=== PATIENT | female | born 1955 | race African-American/Black ===

== ENCOUNTER 2016-11-26 23:38 | Observation (INO) | payer MEDICAID, OTHER ==
[~2016-11-26] VITALS: Ht 153.7 cm; Wt 82.6 kg
--- NOTE | ~2016-11-26 | HEMODYNAMI ---
PATIENT:SANJAY CHENEY MEDICAL RECORD: [id number] : 51 [id number] ADMISSION DATE: 11/27/16 Generatedon:11/27/201616:07 Patient name: SANJAY CHENEY Patient #: [id number] SSN: : 1955 Date of study: 11/27/2016 Page: Of Hemodynamic Procedure Report Patient Data Patient Demographics Procedure consent was obtained First Name: SANJAY Gender: Female Last Name: NONI : 1955 Patient #: [id number] Age: 61 year(s) Race: Black Additional ID: [id number] Contact details Address: [address] [place] [address] State: [place] City: [facility] [place] Zip code: [address] Past Medical History Allergies Allergen Reaction Date Comments Reported Tetracycline 11/27/2016 Admission Admission Data Admission Date: 11/27/2016 Admission Time: 0:35 Admit Source: Emergency Insurance Payor: Private department health insurance, [facility] Room #: D.2202 [facility] Height (in.): 60.5 BSA: 1.8 (m2) Height (cm.): 153.67 BMI: 34.96 (kg/m2) Weight (lbs.): 182 Weight (kg.): 82.55 Lab Results Lab Result Date: 11/27/2016 Lab Result Time: 0:00 Biochemistry Name Units Result Min Max Creatinine mg/dl 1 --(--*-)-- 0.6 1.3 CBC Name Units Result Min Max Hemoglobin g/dl 9.9 *-(----)-- 13.5 17.5 Procedure Procedure Types Cath Procedure Diagnostic Procedure C [facility] w/Coronaries Procedure Description Procedure Date Procedure Date: 11/27/2016 Procedure Start Time: 15:54 Procedure End Time: 16:06 Procedure Staff Name Function Humberto Lara MD Performing Physician Lorna Graham RT Scrub Ras Lopez RN Nurse Yonis Lopez RN Tanbark Laborer Kota Crespo RT Monitor Procedure Data Cath Procedure Fluoroscopy Diagnostic fluoroscopy Total fluoroscopy Time: 0.9 time: 0.9 min min Diagnostic fluoroscopy Total fluoroscopy dose: dose: 104.4 mGy 104.4 mGy Contrast Material Contrast Material Type Amount (ml) Isovue 300 55 Entry Location Entry Primary Successful Side Size Upsize Upsize Entry Closure Succes sful Closure Location (Fr) 1 (Fr) 2 (Fr) Remarks Device Remarks Femoral Right 5 Fr Vascade artery Closure System Diagnostic catheters Device Type Used For End Catheter Placement Cordis 5Fr Pigtail LV Angiography Catheter (MP) Cordis 5Fr JL 4.0 Left Coronary Catheter (MP) Angiography Cordis 5Fr 3DRC Catheter Right Coronary (MP) Angiography Procedure Complications No complications Procedure Medications Medication Administration Route Dosage Oxygen NC 2 l/min Lidocaine 2% added to field 20 Heparin Flush Bag added to field 2 bags (1000units/500ml NS) 0.9% NaCl I.V. 100 ml/hr Versed I.V. 1 mg Fentanyl I.V. 50 mcg Versed I.V. 1 mg Fentanyl I.V. 50 mcg Hemodynamics Rest BSA: 1.8 (m2) HGB: 9.9 (g/dl) O2 Consumption: Estimated: 173.12 (ml/min) O2 Cons umption indexed: Estimated:96.18 (ml/min/m) Heart Rate: 76 (bpm) Snapshots Pre Cath Intra NCS Post Cath Vital Signs Time Heart Resp SPO2 NIBP (mmHg) Rhythm Pain Sedation Rate (ipm) (%) Status Level (bpm) 15:46:42 77 17 100 149/92(133) NSR 0 (11) 10(A) , No pain 15:50:50 81 15 98 124/87(105) NSR 0 (11) 10(A) , No pain 15:54:49 87 23 100 134/85(115) NSR 0 (11) 9(A) , No pain 15:58:49 95 16 96 122/105(118) NSR 0 (11) 9(A) , No pain 16:03:40 88 18 99 Out of range NSR 0 (11) 10(A) , No pain 16:06:13 89 6 98 137/108(121) NSR 0 (11) 10(A) , No pain Medications Time Medication Route Dose Verified Delivered Reason Notes Effe ctiveness by by 15:41:13 Oxygen NC 2 Humberto Buffie used for l/min Marco Lopez RN procedure 15:41:19 Lidocaine 2% added 20ml Humberto Humberto for local to vial Marco Lara MD anesthetic field 15:41:24 Heparin Flush added 2 Humberto Humberto used for Bag to bags Marco Lara MD procedure (1000units/500ml field NS) 15:41:35 0.9% NaCl I.V. 100 Humbertobruce Mcginnis Per ml/hr Marco Lopez RN physician 15:51:50 Versed I.V. 1 mg Humberto Parisiie for Marco Lopez RN sedation 15:51:55 Fentanyl I.V. 50 Humberto Buffie for mcg Marco Lopez RN sedation 15:56:29 Versed I.V. 1 mg Humbertobruce Parisiie for Marco Lopez RN sedation 15:56:33 Fentanyl I.V. 50 Humberto Parisiie for mcg Marco Lopez RN sedation Procedure Log Time Note 15:22:32 Yonis Lopez RN sent for patient. Start room use. 15:22:33 Time tracking: Regular hours 15:22:36 Plan of Care:Hemodynamics will remain stable., Cardiac rhythm will remain stable., Comfort level will be maintained., Respiratory function will remain adequate., Patient/ family verbilizes understanding of procedure., Procedure tolerated without complication., Recovers from procedure without complications.. 15:28:35 Lab Result : Hemoglobin 9.9 g/dl 15:28:35 Lab Result : Creatinine 1 mg/dl 15:28:53 Admit Source: Emergency department 15:28:58 Insurance Payor : Private health insurance, [facility] 15:30:37 Patient Height : 153.67 cm 15:31:13 Patient Weight : 82.55 kg 15:31:20 Patient received from Med/Surg to CCL 2 Alert and oriented. Tansferred to table in Supine position. 15:31:21 Warm blankets applied, and edgar hugger turned on for patient comfort. 15:31:22 Correct patient and procedure confirmed by team. 15:31:23 Signed procedure consent form obtained from spouse. 15:31:25 Full Disclosure recording started 15:32:41 ECG and BP/O2 sat monitors applied to patient. 15:41:13 Oxygen 2 l/min NC was given by Buffie Lopez RN; used for procedure; 15:41:19 Lidocaine 2% 20ml vial added to field was given by Humberto Lara MD; for local anesthetic; 15:41:24 Heparin Flush Bag (1000units/500ml NS) 2 bags added to field was given by Humberto Lara MD; used for procedure; 15:41:35 0.9% NaCl 100 ml/hr I.V. was given by Ras Lopez RN; Per physician; 15:45:36 Vital chart was started 15:45:39 Baseline sample Acquired. 15:45:44 Rhythm: sinus rhythm 15:47:40 H&P Date Dictated: 11/27/2016 Within 30 days and on chart.. 15:47:41 Pre-procedure instructions explained to patient. 15:47:42 Pre-op teaching completed and patient verbalized understanding. 15:47:44 Family in waiting room. 15:47:46 Patient NPO since Midnight. 15:48:04 Patient allergic to Tetracycline 15:48:06 Is the patient allergic to Iodine/contrast media? No. 15:48:10 Is patient on blood thinner?No 15:48:12 Patient diabetic? No. 15:48:14 ----Pre-sedation anethsthesia assessment.---- 15:48:16 Previous problem with sedation/anesthesia? No ? 15:48:17 Snore? Yes 15:48:19 Sleep apnea? No 15:48:23 Deviated septum? No 15:48:25 Opens mouth fully? Yes 15:48:26 Sticks out tongue? Yes 15:48:28 Airway obstruction? No ? 15:48:32 Dentures? No ? 15:48:44 Pre procedure: right dorsailis pedis pulse 1+ Palpable, but thready & weak; easily obliterated 15:49:00 Patient pain scale 0/10 ?. 15:49:15 IV patent on arrival in right antecubital with 0.9% NaCl at 10ml/hr. 15:49:18 Lab results completed and on chart. 15:49:20 Right groin area was prepped with chlora-prep and draped in sterile fashion 15:49:21 Alarms reviewed by R. N. 15:49:22 Sharps counted by scrub and verified by R.N. 15:49:22 --------ALL STOP TIME OUT------ 15:49:23 Final Timeout: patient, procedure, and site verified with staff and physician. All members of the team are in agreement. 15:49:24 Right groin site verified by team. 15:49:34 Physical assessment completed. ASA score P 2 - A patient with mild systemic disease as per Humberto Lara MD. 15:49:38 Sedation plan: IV Moderate Sedation Versed, Fentanyl 15:51:41 Zero performed for pressure channel P1 15:51:50 Versed 1 mg I.V. was given by Ras Lopez RN; for sedation; 15:51:55 Fentanyl 50 mcg I.V. was given by Ras Lopez RN; for sedation; 15:53:25 Use device set Femoral Dx 15:53:27 Acist Syringe opened to sterile field. 15:53:27 Bag Decanter opened to sterile field. 15:53:28 Cardinal Cath Pack opened to sterile field. 15:53:29 Terumo 5Fr [place] Sheath opened to sterile field. 15:53:31 St Jamar 260cm J .035 wire opened to sterile field. 15:53:35 Acist Hand Control opened to sterile field. 15:53:36 Acist Manifold opened to sterile field. 15:53:36 Cordis Infinity 5Fr Multipack catheter opened to sterile field. 15:53:38 Tegaderm 4 x 4 opened to sterile field. 15:53:50 Procedure started. 15:54:04 Local anesthetic to right femoral artery with Lidocaine 2% by Humberto Lara MD.INITIAL ACCESS ONLY 15:54:14 A 5 Fr sheath was inserted into the Right Femoral artery 15:54:34 A Cordis 5Fr Pigtail Catheter (MP) was advanced over the wire and used for LV Angiography. 15:54:55 LV angiography performed. 15:54:57 LV gram done using JOHNSON 15:56:04 EF : 60 % 15:56:06 Catheter removed. 15:56:10 A Cordis 5Fr JL 4.0 Catheter (MP) was advanced over the wire and used for Left Coronary Angiography. 15:56:29 Versed 1 mg I.V. was given by Ras Lopez RN; for sedation; 15:56:33 Fentanyl 50 mcg I.V. was given by Ras Lopez RN; for sedation; 15:56:55 LCA angiography performed. 15:57:30 Catheter removed. 15:57:45 A Cordis 5Fr 3DRC Catheter () was advanced over the wire and used for Right Coronary Angiography. 15:57:49 RCA angiography performed. 15:58:27 Catheter removed. 15:58:36 Vascade 5Fr Closure Device opened to sterile field. 15:58:46 Sheath removed intact; hemostasis achieved with Vascade Closure System to the Right Femoral artery. 15:58:53 Contrast amount:Isovue 300 55ml. 15:58:54 Procedure ended.(Physican Out) 15:59:04 Fluoroscopy time 00.90 minutes. 15:59:10 Fluoroscopy dose: 104.4 mGy 15:59:10 Flurop Dose total: 104.4 15:59:12 Sharps counted by scrub and verified by R.N. 15:59:12 Insertion/operative site no bleeding no hematoma. 15:59:15 Post-op/insertion site Right Femoral artery dressed using a 4 x 4 and Tegaderm. 15:59:20 Post right femoral artery:stable 15:59:22 Post Procedure Pulses reassessed and unchanged 15:59:24 Post procedure: right dorsailis pedis pulse 1+ Palpable, but thready & weak; easily obliterated. 15:59:28 Post procedure rhythm: sinus rhythm 15:59:29 Post procedure instruction explained to patient.Patient verbalizes understanding. 15:59:57 Procedure and supply charges have been captured, reviewed, submitted and are correct. 16:00:12 Procedure Complication : No complications 16:06:21 Vital chart was stopped 16:06:22 See physician's report for complete and final results. 16:06:31 Report given to PCU. 16:06:35 Patient transfered to PCU with Bed. 16:06:36 Procedure ended. 16:06:36 Full Disclosure recording stopped 16:06:42 End room use (Document Last) 16:06:42 End room use (Document Last) Device Usage Item Name Manufacture Quantity Catalog Number Hospital Part Current Minimal Lot# / Charge Number Stock Stock Serial# Code Acist Acist 1 33878 368595 352752 [id number] 20 Syringe Medical Systems Inc Bag Microtek 1 2002S 325830 20086 808641 5 Matchpin Inc. Cardinal Cardinal [address] 210513 92841 295344 5 Cath Pack Health Terumo Terumo 1 [id number] 476715 443712 690875 [address] Jamar 1 332868 601925 860447 177657 30 260cm J .035 wire Acist Acist 1 46543 383312 446307 697648 5 Hand Medical Control Systems Inc Acist Acist 1 57410 828382 625383 511324 5 Manifold Medical Systems Inc Cordis Cardinal 1 GL5830 783159 45133 379389 30 M[facility] [facility] 5Fr Multipack catheter Tegaderm 3M 1 1626W 788260 434739 207188 5 4 x 4 Cordis Cardinal 1 [id number] 5 5Fr Health Pigtail Catheter (MP) Cordis Cardinal 1 [id number] 5 5Fr Pulselocker Health 4.0 Catheter (MP) Cordis Cardinal 1 [id number] 5 5Fr [facility] Health Catheter (MP) Vascade Cardiva 1 [id number] 423926 65707 839183 10 5Fr Medical, Closure Inc. Device Signature Audit Trenary Stage Time Signature Unsigned Intra-Procedure 11/27/2016 Kota Crespo 4:07:23 PM RT(R) Signatures Monitor : Kota Crespo RT Signature : Date : Time : [address] [address]
[2016-11-27 00:10] LABS: BASOPHILS 0.3 % (0.0-2.0); EOSINOPHILS 1.9 % (0-7); HEMATOCRIT 31.1 % (36.0-48.0); HEMOGLOBIN 10.1 g/dL (12-16); IMMATURE GRANULOCYTES 0.2 % (0-5); LYMPHOCYTES 49.6 % (15-50); MCH 26.9 pg (26.0-34.0); MCHC 32.5 g/dL (31.0-37.0); MCV 82.9 fL (80.0-100.0); MEAN PLATELET VOLUME 8.3 fL (7.4-10.4); MONOCYTES 10.5 % (2-11); NEUTROPHILS 37.5 % (40-80); RBC 3.75 10x6/uL (4.00-5.40); WBC 5.8 10x3/uL (4.8-10.8)
[2016-11-27 00:11] LABS: PLATELET COUNT 267 10x3/uL (130-400)
[2016-11-27 00:31] LABS: ALBUMIN 3.7 g/dL (3.4-5.0); ALKALINE PHOSPHATASE 47 U/L (46-116); ALT (SGPT) 16 U/L (10-68); BILIRUBIN - TOTAL 0.24 mg/dL (0.2-1.3); CALC OSMOLALITY 270 mosm/kg (275-300); CALCIUM 9.3 mg/dL (8.5-10.1); CARBON DIOXIDE 30.8 mmol/L (21.0-32.0); CHLORIDE - SERUM 98 mmol/L (98-107); GLUCOSE 100 mg/dL (74-106); POTASSIUM - SERUM 3.7 mmol/L (3.5-5.1); PROTEIN - SERUM 7.5 g/dL (6.4-8.2); SODIUM 135 mmol/L (136-145); UREA NITROGEN 15 mg/dL (7-18); eGFR NON AFRICAN AMERICAN 59 mL/min (90-120)
[2016-11-27 00:34] LABS: CHOL - HDL RATIO 2.1 ratio (2.3-4.1); CHOLESTEROL, TOTAL 184 mg/dL (0-200); CKMB 0.6 U/L (0.0-3.6); CREATINE KINASE 72 UL (21-215); HDL CHOLESTEROL 87 mg/dL (32-96); LDL CHOLESTEROL 85 mg/dL (0-100); TRIGLYCERIDE 62 mg/dL (30-200)
[2016-11-27 00:41] LABS: TROPONIN-I < 0.017 ng/mL (0.000-0.060)
--- NOTE | 2016-11-27 02:33 | NUR ---
PT RECEIVED VIA WHEELCHAIR. COMPLAINTS OF CHEST PAIN. PROVIDED 0.4MG NITRO SL. FIRST DOSE 0230
[2016-11-27 02:39] VITALS: BP 145/84; BMI 35.0
--- NOTE | 2016-11-27 02:40 | NUR ---
INQUIRED ABOUT PT CHEST PAIN, STATED RELIEVED.
[2016-11-27] MEDS ORDERED: LISINOPRIL2.5 MG PO (02:49)
[2016-11-27] MEDS ORDERED: HYDROCHLOROTHIA25 MG PO (02:49)
[2016-11-27] MEDS ORDERED: ANASTROZOLE1 MG PO (02:54)
[2016-11-27] MEDS ORDERED: ASPIRIN81 MG PO (02:55)
[2016-11-27] MEDS ORDERED: LIPITOR20 MG PO (02:55)
--- NOTE | 2016-11-27 02:57 | NUR ---
ADMISSION ASSESSMENT AND HISTORY COMPLETE. HOME MEDICATIONS RECONCILED. WILL MONITOR FOR NEEDS.
[2016-11-27 04:00] VITALS: BP 104/67; BP 170/79
--- NOTE | 2016-11-27 07:53 | NUR ---
PT C/O HEADACHE. NO MED ORDERED AND DR. SINGH NOTIFIED AND ORDER RECEIVED.
[2016-11-27 07:56] VITALS: BP 129/74
--- NOTE | 2016-11-27 08:28 | NUR ---
PT REFUSES LISINPRIL TODAY BECAUSE THE DOSE IN WRONG.
[2016-11-27 08:29] LABS: BASOPHILS 0.3 % (0.0-2.0); EOSINOPHILS 2.8 % (0-7); HEMATOCRIT 30.5 % (36.0-48.0); HEMOGLOBIN 9.9 g/dL (12-16); IMMATURE GRANULOCYTES 0.2 % (0-5); MCH 27.1 pg (26.0-34.0); MCHC 32.5 g/dL (31.0-37.0); MCV 83.6 fL (80.0-100.0); MONOCYTES 10.4 % (2-11); NEUTROPHILS 38.3 % (40-80); PLATELET COUNT 297 10x3/uL (130-400); RBC 3.65 10x6/uL (4.00-5.40); WBC 5.8 10x3/uL (4.8-10.8)
[2016-11-27 08:33] LABS: ANION GAP 12.8 mmol/L (8-16); CALCIUM 9.7 mg/dL (8.5-10.1); CARBON DIOXIDE 27.1 mmol/L (21.0-32.0); POTASSIUM - SERUM 3.9 mmol/L (3.5-5.1)
[2016-11-27 12:02] VITALS: BP 99/61
[2016-11-27 12:15] VITALS: Ht 153.7 cm; Wt 82.6 kg
--- NOTE | 2016-11-27 15:30 | NUR ---
TRANSFER VIA BED TO OPTICAL EFFECTS LAYOUT PERSON. ALERT.
[2016-11-27 15:31] VITALS: BP 132/84
--- NOTE | 2016-11-27 16:17 | NUR ---
PT ARRIVED TO ROOM FROM CREDIT RISK SPECIALIST. RR NONLABORED WITH NC @2L IN PLACE. BALJIT. KATERYNA DRSG CDI NO S/S OF BLEEDING OR HEMATOMA. PERIPHERAL PULSES PALP. NO FAMILY CURRENTLY HERE. PT VERY TIRED RESTING QUIETLY WILL CTM.
[2016-11-27 16:57] VITALS: BP 123/78
--- NOTE | 2016-11-27 18:22 | NUR ---
PT ALLOWED TO SIT UP NOW FROM 2HR LAYING FLAT PROTOCOL. VSS THROUGHOUT THE WHOLE 2 HOURS. D/C R.AC PIV WITH CATHETER TIP FULLY INTACT. REMOVED TELEMETRY AND PLACED BACK TO MONITERS. PTS FAMILY AT BEDSIDE FOR TRANSPORTATION. NO FURTHER NEEDS.
--- NOTE | 2016-12-05 11:11 | OP ---
PATIENT NAME: SANJAY CHENEY MEDICAL RECORD: [id number] :51 LOCATION:D.M2 D.2114 ADMISSION DATE:11/27/16 SURGEON: ONEAL SINGH MD DATE OF OPERATION: 11/27/2016 PROCEDURES: 1. Left heart catheterization. 2. Selective coronary angiography. 3. Left ventriculogram. INDICATION: Chest pain compatible with angina. PROCEDURE IN DETAIL: After informed consent was obtained and after detailed explanation of risks, benefits as well as alternative therapies, the patient elected to proceed with angiogram and heart catheterization. The right femoral area was prepped and draped in normal sterile fashion. The right femoral artery was cannulated via modified Seldinger technique with placement of 5-Afghan sheath. All catheters exchanged through this sheath. FINDINGS: Left ventriculogram was performed in standard 30-degree JOHNSON view, reveals good cardiac wall motion throughout all segments. Overall ejection fraction estimated at 60%. SELECTIVE CORONARY ANGIOGRAPHY: Left main, left anterior descending, left circumflex, and right coronary artery are all smooth-walled vessels with no angiographic evidence of coronary artery disease. OVERALL IMPRESSION: 1. No angiographic evidence of coronary artery disease. 2. Normal left heart pressures. 3. Normal left ventricular systolic function. Chest pain is noncardiac in etiology. No further cardiac workup needs to be ascertained. TRANSINT:[id number] Voice Confirmation ID: [id number] DOCUMENT ID: [id number] ONEAL SINGH MD at 1111 CC: [id number] DICTATION DATE: 11/27/16 1603 DATA ENTRY OPERATOR: 11/27/16 1733 DIS IN 11/27/[address] [address]
--- NOTE | 2016-12-05 11:11 | DS ---
PATIENT:SANJAY CHENEY :51 MEDICAL RECORD: [id number] DISCHARGE SUMMARY ADMISSION DATE: 11/27/16 DISCHARGE DATE: 11/27/16 DISCHARGE DIAGNOSES: 1. Chest pain. 2. Hypertension. 3. Hyperlipidemia. HOSPITAL COURSE: Mrs. Cheney presents with chest pain of unknown etiology and found to have normal cardiac catheterization. Chest pain is noncardiac in etiology. She was discharged home with no change in her medical regimen. No cardiac followup is needed. TRANSINT:[id number] Voice Confirmation ID: [id number] DOCUMENT ID: [id number] ONEAL SINGH MD at 1111 CC: [id number] DICTATION DATE: 11/27/16 1601 DRYWALL FINISHER: 11/27/162124 DIS IN 11/27/16 [place] [place] [address]
== END 2016-11-27 19:26 | disposition home or self-care (01) ==
LOC: D.ER 23:38 → D.MS 11-27 00:35 → D.M2 11-27 00:35 → D.ER 11-27 00:35 → OBSVTIME 11-27 01:23 → D.M2 11-27 16:09
PROVIDERS: Emergency Medicine; ADMIT Internal Medicine Interventional Cardiology
DX: R07.89 Other chest pain (principal); I10 Essential (primary) hypertension; E78.5 Hyperlipidemia, unspecified

== ENCOUNTER 2017-07-03 21:54 | Emergency (ER) | payer OTHER ==
[2016-11-27 12:15] VITALS: BMI 34.9
[~2017-07-03 21:54] MED LIST: ANASTROZOLE1 MG PO; ASPIRIN81 MG PO; HYDROCHLOROTHIA25 MG PO; LIPITOR20 MG PO; LISINOPRIL2.5 MG PO
== END 2017-07-04 01:36 | disposition home or self-care (01) ==
LOC: D.ER 21:54
DX: S16.1XXA Strain of muscle, fascia and tendon at neck level, initial encounter (principal); V43.52XA Car driver injured in collision with other type car in traffic accident, initial encounter; Y93.89 Activity, other specified; Y92.410 Unspecified street and highway as the place of occurrence of the external cause; S39.012A Strain of muscle, fascia and tendon of lower back, initial encounter; M54.9 Dorsalgia, unspecified; M54.2 Cervicalgia

== ENCOUNTER 2018-05-03 20:53 | Emergency (ER) | payer MEDICAID ==
[~2018-05-03] VITALS: Ht 153.7 cm; Wt 83.5 kg
[2018-05-03 21:42] VITALS: Ht 153.7 cm; Wt 83.5 kg
[2018-05-03] MEDS ORDERED: CARDIZEM CD240 MG PO (21:44)
[2018-05-03] MEDS ORDERED: KLOR-CON20 MEQ/PKT PO (21:45)
[2018-05-04] MEDS ORDERED: HYDROCODON-ACE1 EAC7 PO (00:32)
[2018-05-04] MEDS ORDERED: ANAPROX DS550 MG PO (00:32)
[2018-05-04 01:18] VITALS: BP 140/102
== END 2018-05-04 01:02 | disposition home or self-care (01) ==
LOC: D.ER 20:53
DX: M54.12 Radiculopathy, cervical region (principal); E11.9 Type 2 diabetes mellitus without complications

== ENCOUNTER 2021-04-17 14:00 | Outpatient (CLI) | payer MEDICARE ==
[2020-11-16 01:28] VITALS: BMI 30.8
[~2021-04-17 14:00] MED LIST changes: +ANAPROX DS550 MG PO; +CARDIZEM CD240 MG PO; +COZAAR25 MG PO; +FARXIGA10 MG PO; +HYDROCODON-ACE1 EAC7 PO; +KLOR-CON20 MEQ/PKT PO
== END 2021-04-17 23:59 | disposition home or self-care (01) ==
LOC: D.MAMMO 14:00
PROVIDERS: ATTEND Family Medicine
DX: N64.4 Mastodynia (principal)